=== PATIENT | female | born 1960 | race Two or more races ===

== ENCOUNTER 2023-07-14 20:01 | Emergency (ER) | payer OTHER ==
[~2023-07-14] VITALS: Ht 167.6 cm; Wt 72.6 kg
[2023-07-14] MEDS ORDERED: NIFEDIPINE20 MG (20:53)
[2023-07-14] MEDS ORDERED: COZAAR50 MG (20:54)
[2023-07-14 21:57] LABS: HEMATOCRIT 40.3 % (36.0-45.00); HEMOGLOBIN 13.4 g/dL (12.0-15.00); MEAN CELL VOLUME 88.7 fL (80.00-100.00); MEAN CORPUSCULAR HEMOGLOBIN 29.5 pg (27.00-32.0); MEAN CORPUSCULAR HGB CONC 33.2 g/dl (32.0-36.0); PLATELET COUNT 220 K/uL (150-450); RED BLOOD COUNT 4.55 M/uL (4.00-6.00); RED CELL DISTRIBUTION WIDTH 14.2 % (11.5-14.5)
[2023-07-14 22:27] LABS: ALBUMIN 4.5 gm/dL (3.4-5.0); BILIRUBIN TOTAL 1.09 mg/dL (0.3-1.2); CALCIUM 9.4 mg/dL (8.5-10.1); CREATININE SERUM 0.94 mg/dL (0.55-1.02); GFR 60.54; GLOBULINA 4.4 G/DL (2.4-3.5); POTASSIUM 3.4 mEq/L (3.5-5.1); TOTAL PROTEIN 8.9 gm/dL (6.4-8.2)
== END 2023-07-14 22:57 | disposition home or self-care (01) ==
LOC: ER 20:01
PROVIDERS: General Practice
DX: I16.9 Hypertensive crisis, unspecified (principal); I10 Essential (primary) hypertension
CPT/HCPCS: 36415; 70450; 93005; 99284; J1940; J2405; J3490